=== PATIENT | male | born 1940 | race Caucasian/White ===

== ENCOUNTER → 2016-12-23 13:47 | Outpatient (CLI) | payer MEDICARE, OTHER ==
[2016-01-22 09:58] VITALS: BMI 29.5
[~2016-12-23 13:47] MED LIST: AMITRIPTYLINE H50 MG PO; ASCORBIC ACID500 MG PO; ASPIRIN 81 MG E81 MG PO; ATARAX 25 MG TA25 MG PO; ATROVENT 0.06%15 ML NS; BENICAR HCT 20-1 TA1 PO; BREO ELLIPTA 21 EACH; BYSTOLIC10 MG PO; COENZYME Q1030 MG PO; DULCOLAX5 MG PO; FISH OIL 1,0001 CA1 PO; HYZAAR 100-25 T1 TAB PO; LEVOXYL125 MCG PO; LUTEIN20 MG PO; METAMUCIL1042 GM PO; MOBIC7.5 MG PO; MULTIPLE VITAMI1 TA1 PO; NIASPAN1000 MG PO; NOVOLOG100 U/M1; NOVOLOG100 U/M1 SQ; PLAVIX75 MG PO; ZOCOR80 MG PO
== END | disposition home or self-care (01) ==
LOC: D.CT 13:47
DX: I73.9 Peripheral vascular disease, unspecified (principal)

== ENCOUNTER 2016-12-30 07:41 | Outpatient (CLI) | payer MEDICARE, OTHER ==
[~2016-12-30] VITALS: Ht 180.3 cm; Wt 91.8 kg
--- NOTE | ~2016-12-30 | HEMODYNAMI ---
PATIENT:BILL JIMNEEZ MEDICAL RECORD: [id number] : 44 LOCATION:[facility] ADMISSION DATE: 12/30/16 Generatedon:12/30/201610:49 Patient name: BILL JIMENEZ Patient #: [id number] SSN: : 1 12/03/1939 Date of study: 12/30/2016 Page: Of Hemodynamic Procedure Report Patient Data Patient Demographics Procedure consent was obtained First Name: Gender: Male Last Name: TONY : 1940 [facility] Initial: DEX Age: 76 year(s) Patient #: [id number] Race: Unknown Additional ID: [id number] Contact details Address: [address] [place] [address] [place] State: [place] City: [place] Zip code: [address] Past Medical History History of disease Date Diagnosis Comments CAD Renal failure Allergies Allergen Reaction Date Comments Reported Augmentin 01/22/2016 Admission Admission Data Admission Date: 12/30/2016 Admission Time: 7:41 Insurance Payor: Private health insurance, Medicare Height (in.): 70 BSA: 2.1 (m2) Height (cm.): 177.8 BMI: 28.98 (kg/m2) Weight (lbs.): 202 Weight (kg.): 91.63 Medications upon Admission Medications Dosage Times Administered Last Remarks per Delivery Day Date and Time Clopidogrel Yes 12/30/2016 0:00 Lab Results Lab Result Date: 12/30/2016 Lab Result Time: 0:00 Biochemistry Name Units Result Min Max BUN mg/dl 41 --(----)-* 7 18 Creatinine mg/dl 1.8 --(----)-* 0.6 1.3 CBC Name Units Result Min Max Hematocrit % 32.8 *-(----)-- 42 54 Hemoglobin g/dl 10.8 *-(----)-- 13.5 17.5 Procedure Procedure Types Cath Procedure Miscellaneous Procedures Moderate Sedation up to 30 minutes Peripheral Cath Diagnostic Procedure Cath Peripheral Efcyb-Clozzac-Lzn-Off Peripheral vascular Intervention Stent Stent-Fem/Popw/plasty Procedure Description Procedure Date Procedure Date: 12/30/2016 Procedure Start Time: 10:21 Procedure End Time: 10:45 Procedure Staff Name Function Ricardo Dillon MD Performing Physician Wilton Vasques RT Monitor Sukhi Flores RT Lead Front End Developer Norris Barnes RT Scrub Irma Carbajal RN Nurse Procedure Data Cath Procedure Fluoroscopy Diagnostic fluoroscopy Total fluoroscopy Time: 4.9 time: 4.9 min min Diagnostic fluoroscopy Total fluoroscopy dose: 171 dose: 171 mGy mGy Contrast Material Contrast Material Type Amount (ml) Isovue 300 78 Entry Location Entry Primary Successful Side Size Upsize 1 Upsize Entry Closure Kennedy ccessful Closure Location (Fr) (Fr) 2 (Fr) Remarks Device Remarks Femoral Right 5 Fr 7 Fr 7 Fr Exoseal artery Mid-Length Short Estimated blood loss: 10 ml Diagnostic catheters Device Type Used For End Catheter Placement Cordis Tempo 5Fr UF Procedure catheter Procedure Complications No complications Procedure Medications Medication Administration Route Dosage Oxygen NC 2 l/min Lidocaine 2% added to field 20 Heparin Flush Bag added to field 2 bags (1000units/500ml NS) 0.9% NaCl I.V. 100 ml/hr Versed I.V. 1 mg Fentanyl I.V. 50 mcg Versed I.V. 1 mg Fentanyl I.V. 50 mcg Heparin Bolus I.V. 5000 units Versed I.V. 1 mg Fentanyl I.V. 50 mcg Hemodynamics Rest BSA: 2.1 (m2) HGB: 10.8 (g/dl) O2 Consumption: Estimated: 229.52 (ml/min) O2 Con sumption indexed: Estimated:109.3 (ml/min/m) Heart Rate: 55 (bpm) Snapshots Pre Cath Intra NCS Post Cath Vital Signs Time Heart Resp SPO2 etCO2 IP7rpiu NIBP (mmHg) Rhythm Pain Sedation Rate (ipm) (%) (mmHg) (mmHg) Status Level (bpm) 10:13:37 59 16 95 0 0 213/89(144) NSR 0 (11) 10(A) , No pain 10:18:11 55 20 95 0 0 202/75(143) NSR 0 (11) 10(A) , No pain 10:23:51 54 13 99 0 0 201/85(151) NSR 0 (11) 9(A) , No pain 10:28:18 60 19 94 0 0 176/85(137) NSR 0 (11) 9(A) , No pain 10:32:50 64 14 95 0 0 175/72(124) NSR 0 (11) 9(A) , No pain 10:37:12 52 16 95 0 0 159/66(131) NSR 0 (11) 9(A) , No pain 10:41:38 55 16 97 0 0 160/68(140) NSR 0 (11) 10(A) , No pain 10:46:07 55 12 99 0 0 178/73(139) NSR 0 (11) 10(A) , No pain Medications Time Medication Route Dose Verified Delivered Reason Notes Effectiveness by by 10:13:30 Oxygen NC 2 Ricardo Buffie used for l/min Santana Carbajal RN procedure 10:13:42 Lidocaine 2% added 20ml Ricardo Ricardo for local to vial Santana Dillon MD anesthetic field 10:13:48 Heparin Flush added 2 Ricardo Ricardo used for Bag to bags Santana Dillon MD procedure (1000units/500ml field NS) 10:14:00 0.9% NaCl I.V. 100 Ricardo Buffie Per physician ml/hr Santana Carbajal RN 10:18:49 Versed I.V. 1 mg Ricardo Buffie for sedation Santana Carbajal RN 10:18:58 Fentanyl I.V. 50 Ricardo Buffie for sedation mcg Santana Carbajal RN 10:22:17 Versed I.V. 1 mg Ricardo Buffie for sedation Santana Carbajal RN 10:22:20 Fentanyl I.V. 50 Ricardo Buffie for sedation mcg Santana Carbajal RN 10:27:11 Heparin Bolus I.V. 5000 Ricardo Buffie for verifi ed units Santana Carbajal RN anticoagulation with dr dillon 10:36:20 Versed I.V. 1 mg Ricardo Buffie for sedation Santana Carbajal RN 10:36:23 Fentanyl I.V. 50 Ricardo Buffie for sedation mcg Santana Carbajal RN Procedure Log Time Note 9:45:47 Sukhi Flores RT(R) sent for patient. Start room use. 10:04:01 Time tracking: Regular hours 10:04:07 Plan of Care:Hemodynamics will remain stable., Cardiac rhythm will remain stable., Comfort level will be maintained., Respiratory function will remain adequate., Patient/ family verbilizes understanding of procedure., Procedure tolerated without complication., Recovers from procedure without complications.. 10:04:17 Patient received from Pre/Post Procedure Room to CCL 1 Alert and oriented. Tansferred to table in Supine position. 10:04:23 Warm blankets applied, and manuel hugger turned on for patient comfort. 10:04:24 Correct patient and procedure confirmed by team. 10:04:25 Signed procedure consent form obtained from patient. 10:04:26 ECG and BP/O2 sat monitors applied to patient. 10:11:11 Vital chart was started 10:11:12 Full Disclosure recording started 10:13:30 Oxygen 2 l/min NC was given by Irma Carbajal RN; used for procedure; 10:13:42 Lidocaine 2% 20ml vial added to field was given by Ricardo Dillon MD; for local anesthetic; 10:13:48 Heparin Flush Bag (1000units/500ml NS) 2 bags added to field was given by Ricardo Dillon MD; used for procedure; 10:14:00 0.9% NaCl 100 ml/hr I.V. was given by Irma Carbajal RN; Per physician; 10:16:32 Rhythm: sinus bradycardia 10:16:40 Baseline sample Acquired. 10:17:13 H&P Date Dictated: 12/19/2016 Within 30 days and on chart., H&P Addendum completed by physician on day of procedure. (MUST COMPLETE FOR ALL OUTPATIENTS). 10:17:17 Pre-procedure instructions explained to patient. 10:17:18 Pre-op teaching completed and patient verbalized understanding. 10:17:19 Family in waiting room. 10:17:20 Patient NPO since Midnight. 10:17:23 Is the patient allergic to Iodine/contrast media? No. 10:17:25 Is patient on blood thinner?Yes 10:17:27 ACC The patient was administered the following blood thiners within the last 24 hours: ACCPlavix 10:17:29 Patient diabetic? Yes. 10:17:31 If diabetic: On Metformin? No 10:17:33 Previous problem with sedation/anesthesia? No ? 10:17:34 Snore? Yes 10:17:35 Sleep apnea? No 10:17:38 Deviated septum? No 10:17:39 Opens mouth fully? Yes 10:17:40 Sticks out tongue? Yes 10:17:42 Airway obstruction? Yes COPD 10:17:47 Dentures? Yes IN 10:17:51 Pre procedure: right dorsailis pedis pulse 1+ Palpable, but thready & weak; easily obliterated 10:17:53 Pre procedure: left dorsailis pedis pulse 1+ Palpable, but thready & weak; easily obliterated 10:17:56 Patient pain scale 0/10 ?. 10:18:00 IV patent on arrival in left hand with 0.9% NaCl at [facility]. 10:18:02 Lab results completed and on chart. 10:18:05 Bilateral groins area was prepped with chlora-prep and draped in sterile fashion 10:18:07 Alarms reviewed by R. N. 10:18:07 Sharps counted by scrub and verified by R.N. 10:18:09 --------ALL STOP TIME OUT------ 10:18:09 Final Timeout: patient, procedure, and site verified with staff and physician. All members of the team are in agreement. 10:18:11 Bilateral groins site verified by team. 10:18:15 Physical assessment completed. ASA score P 2 - A patient with mild systemic disease as per Ricardo Dlilon MD. 10:18:18 Sedation plan: IV Moderate Sedation Versed, Fentanyl 10:18:49 Versed 1 mg I.V. was given by Irma Carbajal RN; for sedation; 10:18:58 Fentanyl 50 mcg I.V. was given by Irma Carbajal RN; for sedation; 10:20:14 Tegaderm 4 x 4 opened to sterile field. 10:20:15 Acist Manifold opened to sterile field. 10:20:15 Acist Hand Control opened to sterile field. 10:20:17 Acist Syringe opened to sterile field. 10:20:17 Bag Decanter opened to sterile field. 10:20:18 Medline Cath Pack opened to sterile field. 10:20:18 Terumo 5Fr [place] Sheath opened to sterile field. 10:20:19 [place] 260cm J .035 wire opened to sterile field. 10:21:28 Procedure started. 10:21:33 Local anesthetic to right femoral artery with Lidocaine 2% by Ricardo Dillon MD.INITIAL ACCESS ONLY 10:21:35 Zero performed for pressure channel P1 10::42 Zero performed for pressure channel P1 10::50 Zero performed for pressure channel P1 10:22:16 A 5 Fr sheath was inserted into the Right Femoral artery 10::17 Versed 1 mg I.V. was given by Irma Carbajal RN; for sedation; 10::20 Fentanyl 50 mcg I.V. was given by Irma Carbajal RN; for sedation; 10:24:10 A Hearing Health Science 5Fr UF catheter was advanced over the wire and used for Procedure. 10:24:20 Abdominal Aortagram was performed. 10:24:26 Left leg runoff performed. 10:24:27 Right leg runoff performed. 10:25:16 Catheter removed. 10:25:23 Terumo 7Fr [place] Sheath opened to sterile field. 10:26:48 Terumo 7Fr [place] Destination Sheath opened to sterile field. 10:26:58 Sheath upsized to a 7 Fr Mid-Length. 10:27:11 Heparin Bolus 5000 units I.V. was given by Irma Carbajal RN; for anticoagulation; verified with dr dillon 10:27:25 [place] ROADRUNNER FIRM 260CM glide wire opened to sterile field. 10:28:13 Terumo TORQUE DEVICE PLASTIC .038 opened to sterile field. 10:28:29 glide wire advanced around the horn 10:28:48 Destination sheath advanced around the horn. 10:29:45 glide wire removed, unnable to cross lesion. 10:30:51 Merit BasixCompak Inflation Kit opened to sterile field. 10:30:59 [place] Sci Choice PT Extra Support J 300cm .014 gu opened to sterile field. 10:31:23 pt extra support wire advanced. 10:31:24 Wire advanced across lesion. 10:34:00 Inflation number: 1 A Saber 6.0 x 8 x 150 balloon was prepped and advanced across the Mid Superficial Femoral, Left, then inflated to 11 PINEDA for 0:10 (min:sec). 10:34:10 multiple inflatons to 11 atms 10:34:25 Balloon removed over the wire. 10:36:20 Versed 1 mg I.V. was given by Irma Carbajal RN; for sedation; 10:36:23 Fentanyl 50 mcg I.V. was given by Irma Carbajal RN; for sedation; 10:36:43 Cordis SMART 7 X 20 X 120 stent was deployed across Mid Superficial Femoral, Left . 10:36:58 Stent catheter was removed intact over wire. 10:37:46 Inflation number: 2 The Saber 6.0 x 8 x 150 balloon was reinflated across the Mid Superficial Femoral, Left, to 17 PINEDA for 0:10 (min:sec). 10:38:04 Balloon removed over the wire. 10:39:02 Wire removed. 10:39:23 glide wire advanced to exchange sheath. 10:39:25 Sheath upsized to a 7 Fr Short. 10:39:34 Cordis 7Fr Exoseal opened to sterile field. 10:39:57 Sheath removed intact; hemostasis achieved with Exoseal to the Right Femoral artery. 10:40:24 Procedure ended.(Physican Out) 10:41:05 Fluoroscopy time 04.90 minutes. 10:41:10 Fluoroscopy dose: 171 mGy 10:41:10 Flurop Dose total: 171 10:41:24 Contrast amount:Isovue 300 78ml. 10:41:26 Sharps counted by scrub and verified by R.N. 10:41:29 Insertion/operative site no bleeding no hematoma. 10:41:34 Post-op/insertion site Right Femoral artery dressed using a 4 x 4 and Tegaderm. 10:41:40 Post right femoral artery:stable, soft, clean and dry 10:41:43 Post Procedure Pulses reassessed and unchanged 10:41:45 Post-procedure physical assessment completed. ASA score P 2 - A patient with mild systemic disease as per iRcardo Dillon MD. 10:41:47 Post procedure rhythm: unchanged. 10:41:50 Estimated blood loss: 10 ml 10:41:51 Post procedure instruction explained to patient.Patient verbalizes understanding. 10:42:05 Patient needs reinforcement of post procedure teaching. 10:43:18 Procedure type changed to Cath procedure, Miscellaneous Procedures, Moderate Sedation up to 30 minutes, Peripheral Cath Diagnostic Procedure, Cath Peripheral, Kvu[place]-Lpsepub-Owa-Off, Peripheral vascular Intervention, Stent, Stent-Fem/Popw/plasty 10:45:14 Procedure and supply charges have been captured, reviewed, submitted and are correct. 10:45:17 Procedure Complication : No complications 10:45:19 Vital chart was stopped 10:45:19 See physician's report for complete and final results. 10:45:21 Report given to Pre/Post Procedure Room. 10:45:24 Patient transfered to Pre/Post Procedure Room with Stretcher. 10:45:26 Procedure ended. 10:45: Full Disclosure recording stopped 10:45:33 ACC-PCI Only Patient was given prescriptions, or instructed by Ricardo Dillon MD to start/continue the following medications upon discharge: Plavix 10:46:44 Patient Height : 70 inches 10:46:51 Patient Weight : 202 lbs 10:46:53 Insurance Payor : Private health insurance, Medicare 10:48:43 Lab Result : BUN 41 mg/dl 10:48:43 Lab Result : Hematocrit 32.8 % 10:48:43 Lab Result : Hemoglobin 10.8 g/dl 10:48:43 Lab Result : Creatinine 1.8 mg/dl 10:48:50 End room use (Document Last) Intervention Summary Intervention Notes Time ActionType Lesion and Equipment Action# Pressure Duration Attributes Used 10:34:00 Inflate Mid Saber 6.0 1 11 00:10 balloon Superficial x 8 x 150 Femoral, balloon Left 10:36:43 Deploy self Mid Cordis 1 expanding Superficial SMART 7 X stent Femoral, 20 X 120 Left stent 10:37:46 Reinflate Mid Saber 6.0 2 17 00:10 balloon Superficial x 8 x 150 Femoral, balloon Left Device Usage Item Name Manufacture Quantity Catalog Number Hospital Part Current [facility] al Lot# / Charge Number Stock Stock Serial# Code Tegaderm 4 3M 1 [id number] [id number] 924689 652850 5 x 4 Acist Acist 1 39707 157851 876815 751806 5 Manifold Medical Systems Inc Acist Hand Acist 1 98999 547880 910213 307614 5 Control Medical Systems Inc Acist Acist 1 63754 542415 007732 393959 20 Syringe Medical Systems Inc Bag Microtek 1 2002S 136248 25150 118354 5 Decanter Medical Inc. Medline Cardinal 1 [id number] 326959 64092 022538 5 Cath Pack Health Terumo 5Fr Terumo 1 [id number] 370426 933329 862422 [address] [place] [address] [facility] [place] 1 670762 378899 448807 316474 30 260cm J .035 wire Cordis Cardinal 1 [id number] 581158 794691 850063 10 Tempo 5Fr Health UF catheter Terumo 7Fr Terumo 1 [id number] 310342 014463 579064 5 [place] Sheath Terumo 7Fr Terumo 1 RSR04 576203 041700 566449 5 [place] Destination Sheath [facility] 1 B37560 075456 041961 5 ROADRUNNER FIRM 260CM glide wire Terumo [place] 1 TD01 296164 918449 167627 5 TORQUE Scientific DEVICE PLASTIC .038 Merit Merit 1 MQ5201 707813 291637 380555 15 BasixCompak Medical Inflation Kit [place] 1 [id number] 957600 082018 291431 5 Choice PT Scientific Extra Support J 300cm .014 gu Saber 6.0 x Cardinal 1 [id number] 564234 638462 122051 5 8 x 150 Health balloon Cordis Cardinal 1 [id number] 221551 203351 0 SMART 7 X Health 20 X 120 stent Cordis 7Fr Cardinal 1 EX700 590800 562678 493356 5 Exoseal Health Signature Audit [place] Stage Time Signature Unsigned Intra-Procedure 12/30/2016 Wilton Vasques 10:49:07 AM RT(R) Signatures Monitor : Wilton Vasques RT Signature : Date : Time : [facility] [address] [id number]
[~2016-12-30 07:41] MED LIST changes: -BREO ELLIPTA 21 EACH; -DULCOLAX5 MG PO; -HYZAAR 100-25 T1 TAB PO; -MOBIC7.5 MG PO
[2016-12-30 08:01] VITALS: BP 158/41; Ht 180.3 cm; Wt 91.8 kg
[2016-12-30] MEDS ORDERED: BREO ELLIPTA 21 EACH (08:10)
[2016-12-30] MEDS ORDERED: HYZAAR 100-25 T1 TAB PO (08:13)
[2016-12-30] MEDS ORDERED: MOBIC7.5 MG PO (08:15)
[2016-12-30] MEDS ORDERED: DULCOLAX5 MG PO (08:19)
[2016-12-30 08:23] LABS: BASOPHILS 0.3 % (0.0-2.0); EOSINOPHILS 3.2 % (0-7); HEMATOCRIT 32.8 % (42.0-54.0); HEMOGLOBIN 10.8 g/dL (13.5-17.5); IMMATURE GRANULOCYTES 0.2 % (0-5); LYMPHOCYTES 31.6 % (15-50); MCH 30.5 pg (26.0-34.0); MCHC 32.9 g/dL (31.0-37.0); MCV 92.7 fL (80.0-100.0); MEAN PLATELET VOLUME 11.2 fL (7.4-10.4); NEUTROPHILS 54.7 % (40-80); PLATELET COUNT 234 10x3/uL (130-400); RBC 3.54 10x6/uL (4.20-6.10); RDW 13.3 % (11.5-14.5); WBC 6.2 10x3/uL (4.8-10.8)
[2016-12-30 08:32] LABS: ANION GAP 13.4 mmol/L (8-16); CALCIUM 9.2 mg/dL (8.5-10.1); CREATININE - SERUM 1.8 mg/dL (0.6-1.3); POTASSIUM - SERUM 4.4 mmol/L (3.5-5.1)
--- NOTE | 2016-12-30 11:05 | NUR ---
1105 HR 58 CHEST PAIN DENIED.BP 170/64. O2 AT 2 LITERS NASAL WITH NO DISTRESS NOTED. 7 FR EXOSEAL R/GROIN CDI NO BLEEDING NO HEMATOMA NOTED INSTRUCTED PATIENT TO KEEP HEAD FLAT ON PILLOW WITH RLE STRAIGHT
--- NOTE | 2016-12-30 11:45 | NUR ---
1145 RESTING QUIETLY WITH NO DISTRESS NOTED VSS WITH 7 FR EXOSEAL R/GROIN CDI NO BLEEDING NO HEMATOMA NOTED. FAMILY AT SIDE 1215 NO CHANGE IN ASSESSMENT R/GROIN CDI NO BLEEDING NO HEMATOMA NOTED.
--- NOTE | 2016-12-30 12:41 | NUR ---
VSS WITH CHEST PAIN DENIED NO DISTRESS OR C/O 7 FR EXOSEAL R/GROIN CDI NO BLEEDING NO HEMATOMA NOTED WILL MONITOR
--- NOTE | 2016-12-30 13:39 | NUR ---
1325 REPORT AND CARE FROM KRYSTIN FLOYD RN. PT IS ALERT, DENIES ANY C/O. DRESSING TO RIGHT GROIN IS CDI, NO BLEEDING OR HEMATOMA NOTED. PEDAL PULSES PALPABLE. AT BEDSIDE. SANDWICH AND WATER SERVED. CALL LIGHT IN REACH.
--- NOTE | 2016-12-30 15:20 | NUR ---
1425 PT HAS TOLERATED SANDWICH WITH NO C/O NAUSEA. GROIN DRESSING REMAINS CDI, PT DENIES ANY C/O. 1500 IV HAS BEEN DC'D WITH CATH INTACT. PT IS DRESED FOR DC AND HAS AMBULATED TO THE BATHROOM AND VOIDED QS. 1505 REVIEWED DC INSTRUCTIONS WITH PT AND WHO VERBALIZE UNDERSTANDING. PT ESCORTED TO PRIVATE AUTO VIA WC BY STAFF WITH DRIVING HIM HOME.
--- NOTE | 2017-01-03 08:47 | OP ---
PATIENT NAME: BILL JIMENEZ MEDICAL RECORD: [id number] :42 LOCATION:D.CAT ADMISSION DATE: SURGEON: JAM PADILLA MD DATE OF OPERATION: 12/30/2016 PROCEDURES: 1. Stent placement SFA, left. 2. FIELD SALES CONSULTANT SFA, left. 3. Aortofemoral runoff. 4. Abdominal aortography. INDICATION: Claudication and peripheral vascular disease. PROCEDURE IN DETAIL: After informed consent was obtained and after detailed explanation of risks, benefits as well as alternative therapies, the patient elected to proceed with angiogram and angioplasty. The right femoral area was prepped and draped in normal sterile fashion. Right femoral artery was cannulated via modified Seldinger technique with placement of a 7-[place] bxupme-vgj-cthb sheath. All catheters exchanged through this sheath. FINDINGS: The abdominal aortography was performed. The catheter was pulled down for aortofemoral runoff. Abdominal aortography reveals no significant abdominal aortic disease. There is a greater than 70% renal artery stenosis on the right. The left is devoid of renal artery stenosis. RIGHT LEG: A. Iliac: The common internal and external iliacs have mild irregularities, but no flow-limiting stenosis. B. Femoral system: The common and deep femoral have mild irregularities, but superficial femoral has multiple areas with 70% to 80% stenosis. C. Popliteal and infrapopliteal vessels are patent with good 3-vessel runoff to the foot, although mildly diffusely diseased. LEFT LEG: A. Iliac: The common internal and external iliacs have ____ irregularities, but no flow-limiting stenosis. B. Femoral system: The common and deep femoral are widely patent. Superficial femoral has previously placed stents. There is 90% stenosis proximal to the previously placed stents. C. Popliteal and infrapopliteal vessels are patent giving a 3-vessel runoff to the foot. FIELD SALES CONSULTANT STENT OF THE LEFT SFA. The balloon used was a 6.0 balloon which yielded a suboptimal result with severe intimal dissection. Stenting was undertaken with a 7 x 20 S.M.A.R.T stent. Result was 0% residual stenosis. OVERALL IMPRESSION: Successful percutaneous transluminal angioplasty stent of the left superficial femoral artery going from 90% initial stenosis to 0% residual stenosis. TRANSINT:[id number] Voice Confirmation ID: [id number] DOCUMENT ID: [id number] OPERATIVE REPORT [id number] TONYBILL HAMMOND, JAM JOHNSON at 0847 CC: [id number] DICTATION DATE: 12/30/16 1046 AMERICAN SIGN LANGUAGE INTERPRETER: 12/30/16 1128 DEP CLI 12/30/16 [id number] [place] [address]
== END 2016-12-30 15:05 | disposition home or self-care (01) ==
LOC: D.CATH 07:41
PROVIDERS: Internal Medicine Interventional Cardiology
DX: I70.212 Atherosclerosis of native arteries of extremities with intermittent claudication, left leg (principal)

== ENCOUNTER 2017-01-06 07:53 | Outpatient (CLI) | payer MEDICARE, OTHER ==
[~2017-01-06] VITALS: Ht 180.3 cm; Wt 91.8 kg
--- NOTE | ~2017-01-06 | HEMODYNAMI ---
PATIENT:BILL JIMENEZ MEDICAL RECORD: [id number] : 44 LOCATION:[facility] ADMISSION DATE: 01/06/17 Generatedon:01/06/201710:53 Patient name: BILL JIMENEZ Patient #: [id number] : 1940 Date of study: 01/06/2017 Page: Of Hemodynamic Procedure Report Patient Data Patient Demographics Procedure consent was obtained First Name: Gender: Male Last Name: TONY : 1940 Middle Initial: DEX Age: 76 year(s) Patient #: [id number] Race: SSN: [id number] Additional ID: [id number] Contact details Address: [address] [place] [address] [place] State: [place] City: [place] Zip code: [address] Past Medical History History of disease Date Diagnosis Comments CAD Renal failure Allergies Allergen Reaction Date Comments Reported Augmentin 01/22/2016 Admission Admission Data Admission Date: 01/06/2017 Admission Time: 7:53 Arrival Date: 01/06/2017 Arrival Time: 10:45 Admit Source: Other Insurance Payor: Medicare Height (in.): 71 BSA: 2.12 (m2) Height (cm.): 180.34 BMI: 28.17 (kg/m2) Weight (lbs.): 202 Weight (kg.): 91.63 Lab Results Lab Result Date: 01/06/2017 Lab Result Time: 0:00 Biochemistry Name Units Result Min Max BUN mg/dl 38 --(----)-* 7 18 Creatinine mg/dl 1.6 --(----)-* 0.6 1.3 CBC Name Units Result Min Max Hemoglobin g/dl 10.2 *-(----)-- 13.5 17.5 Procedure Procedure Types Cath Procedure Peripheral Cath Diagnostic Procedure Abd/Extremity Extremities Right Lower Ext Arterio Peripheral vascular Intervention Stent Stent-Fem/Popw/plasty Procedure Description Procedure Date Procedure Date: 01/06/2017 Procedure Start Time: 10:31 Procedure End Time: 10:46 Procedure Staff Name Function Ricardo Dillon MD Performing Physician Mariel Hodgson RT Scrub Irma Carbajal RN Nurse Ivis Mata RT Monitor Procedure Data Cath Procedure Fluoroscopy Diagnostic fluoroscopy Total fluoroscopy Time: 4.4 time: 4.4 min min Diagnostic fluoroscopy Total fluoroscopy dose: 78 dose: 78 mGy mGy Contrast Material Contrast Material Type Amount (ml) Isovue 370 42 Entry Location Entry Primary Successful Side Size Upsize Upsize Entry Closure Succes sful Closure Location (Fr) 1 (Fr) 2 (Fr) Remarks Device Remarks Femoral Left 7 Fr 7 Fr Exoseal artery Long Short Estimated blood loss: 5 ml Diagnostic catheters Device Type Used For End Catheter Placement Diagnostic 5Fr IMT Multi-vessel Catheter Angiography Procedure Complications No complications Procedure Medications Medication Administration Route Dosage Oxygen NC 2 l/min Lidocaine 2% added to field 20 Heparin Flush Bag added to field 2 bags (1000units/500ml NS) 0.9% NaCl I.V. 100 ml/hr Versed I.V. 1 mg Fentanyl I.V. 50 mcg Versed I.V. 1 mg Fentanyl I.V. 50 mcg Heparin Bolus I.V. 4000 units Fentanyl I.V. 100 mcg Hemodynamics Rest BSA: 2.12 (m2) HGB: 10.2 (g/dl) O2 Consumption: Estimated: 228.85 (ml/min) O2 Co nsumption indexed: Estimated:107.95 (ml/min/m) Heart Rate: 51 (bpm) Snapshots Pre Cath Intra NCS Post Cath Vital Signs Time Heart Resp SPO2 NIBP (mmHg) Rhythm Pain Sedation Rate (ipm) (%) Status Level (bpm) 9:41:49 48 17 98 221/80(177) NSR 0 (11) 10(A) , No pain 9:47:35 51 19 98 223/81(173) NSR 0 (11) 10(A) , No pain 9:52:20 50 17 99 215/82(175) NSR 0 (11) 10(A) , No pain 9:56:59 51 17 98 219/88(171) NSR 0 (11) 10(A) , No pain 10:02:43 46 16 97 201/68(152) NSR 0 (11) 10(A) , No pain 10:08:09 51 16 98 195/80(155) NSR 0 (11) 10(A) , No pain 10:13:46 47 17 97 205/73(144) NSR 0 (11) 10(A) , No pain 10:18:27 58 16 96 189/86(143) NSR 0 (11) 10(A) , No pain 10:23:04 57 15 95 189/78(140) NSR 0 (11) 10(A) , No pain 10:28:33 52 15 98 195/70(144) NSR 0 (11) 9(A) , No pain 10:34:13 51 16 97 203/58(144) NSR 0 (11) 9(A) , No pain 10:38:40 53 16 94 175/87(97) NSR 0 (11) 9(A) , No pain 10:43:39 58 15 99 Measuring NSR 0 (11) 9(A) , No pain 10:44:18 57 16 98 199/76(145) NSR 0 (11) 10(A) , No pain Medications Time Medication Route Dose Verified Delivered Reason Notes Effectiveness by by 9:51:02 Oxygen NC 2 Ricardo Buffie used for l/min Santana Carbajal RN procedure 9:51:08 Lidocaine 2% added 20ml Ricardo Buffie used for to vial Santana Carbajal RN procedure field 9:51:14 Heparin Flush added 2 Ricardo Buffie used for Bag to bags Santana Carbajal RN procedure (1000units/500ml field NS) 9:51:21 0.9% NaCl I.V. 100 Ricardo Buffie Per physician ml/hr Santana Carbajal RN 10:26:11 Versed I.V. 1 mg Ricardo Buffie for sedation Santana Carbajal RN 10:26:17 Fentanyl I.V. 50 Ricardo Buffie for sedation mcg Santana Carbajal RN 10:31:33 Versed I.V. 1 mg Ricardo Buffie for sedation Santana Carbajal RN 10:31:36 Fentanyl I.V. 50 Ricardo Buffie for sedation mcg Santana Carbajal RN 10:32:27 Heparin Bolus I.V. 4000 Ricardo Buffie for verifi ed units Santana Carbajal RN anticoagulation with dr dillon 10:35:30 Fentanyl I.V. 100 Ricardo Buffie for sedation mcg Santana Carbajal neurobiologist Log Time Note 9:00:02 Mariel Hodgson RT(R) sent for patient. Start room use. 9:24:01 Informed consent obtained and on chart 9:24:06 Diagnostic Cath Status : Elective 9:25:08 Admit Source: Other 9:25:09 Arrival Date: 01/06/2017 10:45:00 AM 9:25:19 Insurance Payor : Medicare 9:28:12 Lab Result : Hemoglobin 10.2 g/dl 9::12 Lab Result : BUN 38 mg/dl 9::12 Lab Result : Creatinine 1.6 mg/dl 9:30:17 Time tracking: Regular hours 9:30:21 Plan of Care:Hemodynamics will remain stable., Cardiac rhythm will remain stable., Comfort level will be maintained., Respiratory function will remain adequate., Patient/ family verbilizes understanding of procedure., Procedure tolerated without complication., Recovers from procedure without complications.. 9:30:29 Patient received from Pre/Post Procedure Room to CCL 2 Alert and oriented. Tansferred to table in Supine position. 9:30:30 Warm blankets applied, and manuel hugger turned on for patient comfort. 9:30:31 Correct patient and procedure confirmed by team. 9:30:31 ECG and BP/O2 sat monitors applied to patient. 9:36:19 H&P Date Dictated: 12/19/2016 Within 30 days and on chart., H&P Addendum completed by physician on day of procedure. (MUST COMPLETE FOR ALL OUTPATIENTS). 9:36:23 Pre-procedure instructions explained to patient. 9:36:25 Family in waiting room. 9:36:27 Patient NPO since Midnight. 9:36:30 Is the patient allergic to Iodine/contrast media? No. 9:36:33 Was the patient premedicated? Yes 9:36:35 Is patient on blood thinner?Yes 9:36:38 ACC The patient was administered the following blood thiners within the last 24 hours: ACCPlavix 9:36:42 Patient diabetic? Yes. 9:36:44 If diabetic: On Metformin? No 9:36:49 Snore? Yes 9:36:50 Sleep apnea? No 9:37:07 Dentures? Yes tight 9:39:16 Vital chart was started 9:39:17 Baseline sample Acquired. 9:39:21 Rhythm: sinus rhythm 9:39:27 Full Disclosure recording started 9:39:34 Deviated septum? No 9:39:35 Opens mouth fully? Yes 9:39:35 Sticks out tongue? Yes 9:39:37 Airway obstruction? No ? 9:39:49 Pre procedure: right dorsailis pedis pulse 1+ Palpable, but thready & weak; easily obliterated 9:39:52 Patient pain scale 0/10 ?. 9:40:03 IV patent on arrival in left forearm with 0.9% NaCl at [facility]. 9:40:09 Lab results completed and on chart. 9:40:15 Left groin area was prepped with chlora-prep and draped in sterile fashion 9:40:16 Alarms reviewed by R. N. 9:40:16 Sharps counted by scrub and verified by R.N. 9:45:55 Patient Height : 180.34 inches 9:45:59 Patient Weight : 91.63 lbs 9:51:02 Oxygen 2 l/min NC was given by Irma Carbajal RN; used for procedure; 9:51:08 Lidocaine 2% 20ml vial added to field was given by Irma Carbajal RN; used for procedure; 9:51:14 Heparin Flush Bag (1000units/500ml NS) 2 bags added to field was given by Iram Carbajal RN; used for procedure; 9:51:21 0.9% NaCl 100 ml/hr I.V. was given by Irma Carbajal RN; Per physician; 10:21:11 Physician arrived 10:21:12 --------ALL STOP TIME OUT------ 10:21:12 Final Timeout: patient, procedure, and site verified with staff and physician. All members of the team are in agreement. 10:21:15 Left groin site verified by team. 10:21:17 Physical assessment completed. ASA score P 2 - A patient with mild systemic disease as per Ricardo Dillon MD. 10:21:22 Sedation plan: IV Moderate Sedation Versed, Fentanyl 10:26:11 Versed 1 mg I.V. was given by Irma Carbajal RN; for sedation; 10::17 Fentanyl 50 mcg I.V. was given by Buffie Carbajal RN; for sedation; 10:30:10 Use device set Femoral PCI 10:30:11 Acist Syringe opened to sterile field. 10:30:12 Acist Hand Control opened to sterile field. 10:30:13 Bag Decanter opened to sterile field. 10:30:13 Medline Cath Pack opened to sterile field. 10:30:17 [place] 260cm J .035 wire opened to sterile field. 10:30:18 Merit BasixCompak Inflation Kit opened to sterile field. 10:30:22 Acist Manifold opened to sterile field. 10:30:22 Tegaderm 4 x 4 opened to sterile field. 10:30:46 Terumo 7Fr [place] Sheath opened to sterile field. 10:30:47 Terumo 7Fr [place] Destination Sheath opened to sterile field. 10:31:30 Procedure started. 10:31:33 Versed 1 mg I.V. was given by Irma Carbajal RN; for sedation; 10:31:34 Local anesthetic to left femerol artery with Lidocaine 2% by Ricardo Dillon MD.INITIAL ACCESS ONLY 10:31:36 Fentanyl 50 mcg I.V. was given by Irma Carbajal RN; for sedation; 10:31:49 A 7 Fr Long sheath was inserted into the Left Femoral artery 10:32:09 Terumo ANGLED SS 260CM glide wire opened to sterile field. 10:32:17 Terumo TORQUE DEVICE PLASTIC .038 opened to sterile field. 10:32:27 Heparin Bolus 4000 units I.V. was given by Irma Carbajal RN; for anticoagulation; verified with dr dillon 10:32:31 A Diagnostic 5Fr IMT Catheter was advanced over the wire and used for Multi-vessel Angiography. 10:32:45 glide wire advanced. 10:33:39 Right leg runoff performed. 10:34:07 Catheter removed. 10:35:30 Fentanyl 100 mcg I.V. was given by Irma Carbajal RN; for sedation; 10:36:02 Inflation number: 1 A Cordis Powerflex Pro 6.0 X 60 X 135 balloon was prepped and advanced across the Mid Superficial Femoral, Right, then inflated to 11 PINEDA for 0:10 (min:sec). 10:36:19 Inflation number: 2 The Cordis Powerflex Pro 6.0 X 60 X 135 balloon was reinflated across the Mid Superficial Femoral, Right, to 11 PINEDA for 0:10 (min:sec). 10:37:17 Balloon removed over the wire. 10:39:47 Cordis SMART 6 X 80 X 120 stent was deployed across Mid Superficial Femoral, Right . 10:39:55 Stent catheter was removed intact over wire. 10:41:03 Inflation number: 3 The Cordis Powerflex Pro 6.0 X 60 X 135 balloon was reinflated across the Mid Superficial Femoral, Right, to 13 PINEDA for 0:10 (min:sec). 10:41:58 Balloon removed over the wire. 10:42:14 Sheath upsized to a 7 Fr Short. 10:42:31 Cordis 7Fr Exoseal opened to sterile field. 10:43:19 Sheath removed intact; hemostasis achieved with Exoseal to the Left Femoral artery. 10:43:23 Procedure ended.(Physican Out) 10:44:33 Fluoroscopy time 04.40 minutes. 10:44:38 Flurop Dose total: 78 10:44:38 Fluoroscopy dose: 78 mGy 10:44:44 Contrast amount:Isovue 370 42ml. 10:44:46 Sharps counted by scrub and verified by R.N. 10:44:53 Insertion/operative site no bleeding no hematoma. 10:44:58 Post-op/insertion site Left Femoral artery dressed using a 4 x 4 and Tegaderm. 10:45:01 Post left femerol artery:stable 10:45:04 Post Procedure Pulses reassessed and unchanged 10:45:09 Post procedure rhythm: unchanged. 10:45:12 Estimated blood loss: 5 ml 10:45:14 Post procedure instruction explained to patient.Patient verbalizes understanding. 10:45:14 Patient needs reinforcement of post procedure teaching. 10:46:38 Procedure type changed to Cath procedure, Peripheral Cath Diagnostic Procedure, Abd/Extremity, Extremities, Right Lower Ext Arterio, Peripheral vascular Intervention, Stent, Stent-Fem/Popw/plasty 10:46:40 Procedure and supply charges have been captured, reviewed, submitted and are correct. 10:46:44 Procedure Complication : No complications 10:46:46 Vital chart was stopped 10:46:46 See physician's report for complete and final results. 10:46:48 Report given to Pre/Post Procedure Room. 10:46:53 Patient transfered to Pre/Post Procedure Room with Stretcher. 10:46:55 Procedure ended. 10:46:55 Full Disclosure recording stopped 10:47:17 End room use (Document Last) Intervention Summary Intervention Notes Time ActionType Lesion and Equipment Action# Pressure Duration Attributes Used 10:36:02 Inflate Mid Cordis 1 11 00:10 balloon Superficial Powerflex Femoral, Pro 6.0 X Right 60 X 135 balloon 10:36:19 Reinflate Mid Cordis 2 11 00:10 balloon Superficial Powerflex Femoral, Pro 6.0 X Right 60 X 135 balloon 10:39:47 Deploy self Mid Cordis 1 expanding Superficial SMART 6 X stent Femoral, 80 X 120 Right stent 10:41:03 Reinflate Mid Cordis 3 13 00:10 balloon Superficial Powerflex Femoral, Pro 6.0 X Right 60 X 135 balloon Device Usage Item Name Manufacture Quantity Catalog Number Hospital Part Current Minim al Lot# / Charge Number Stock Stock Serial# Code Acist Acist 1 06331 595222 007927 [id number] 20 Syringe Medical Systems Inc Acist Hand Acist 1 80326 948520 231825 673980 5 Control Medical Systems Inc Bag Microtek 1 2002S 222589 81320 477105 5 DecBodBot Medical Inc. Medline Cardinal 1 [id number] 322638 36194 006682 [address] [facility] [place] 1 164402 184177 467843 140553 30 260cm J .035 wire Merit Merit 1 [id number] 314869 078367 121266 15 [employer]Intelle[employer] Medical Inflation Kit Acist Acist 1 11809 893713 865529 888112 5 Manifold Medical Systems Inc Tegaderm 4 3M 1 1626W 092522 858139 355824 5 x 4 Terumo 7Fr Terumo 1 [id number] 185578 438590 374387 5 Almont Sheath Terumo 7Fr Terumo 1 RSR04 792363 804129 576256 5 Almont Destination Sheath Terumo Terumo 1 [id number] 674047 337462 168651 5 ANGLED SS 260CM glide wire Terumo [place] 1 TD01 981182 938894 696764 5 TORQUE Scientific DEVICE PLASTIC .038 Cordis Cardinal 1 [id number] 187586 662528 5 Powerflex Health Pro 6.0 X 60 X 135 balloon Cordis Cardinal 1 [id number] 053307 750879 694731 0 [id number] SMART 6 X Health 80 X 120 stent Cordis 7Fr Cardinal 1 EX700 953756 143410 396972 5 [facility] Health Diagnostic [place] [address] [id number] 001694 230045 22129 5 5Fr [facility] Scientific Catheter Signature Audit [place] Stage Time Signature Unsigned Intra-Procedure 01/06/2017 Ivis Mata 10:52:56 AM RT(R) Signatures Monitor : Ivis Mata RT Signature : Date : Time : [place] [id number] [facility] [place] [address]
[~2017-01-06 07:53] MED LIST changes: +BREO ELLIPTA 21 EACH; +DULCOLAX5 MG PO; +HYZAAR 100-25 T1 TAB PO; +MOBIC7.5 MG PO
[2017-01-06 08:10] VITALS: Ht 180.3 cm; Wt 91.8 kg
[2017-01-06 08:49] LABS: BASOPHILS 0.5 % (0.0-2.0); EOSINOPHILS 2.9 % (0-7); HEMATOCRIT 30.6 % (42.0-54.0); HEMOGLOBIN 10.2 g/dL (13.5-17.5); IMMATURE GRANULOCYTES 0.2 % (0-5); LYMPHOCYTES 26.5 % (15-50); MCHC 33.3 g/dL (31.0-37.0); MONOCYTES 9.7 % (2-11); NEUTROPHILS 60.2 % (40-80); PLATELET COUNT 211 10x3/uL (130-400); RBC 3.29 10x6/uL (4.20-6.10); RDW 13.4 % (11.5-14.5); WBC 6.1 10x3/uL (4.8-10.8)
[2017-01-06 09:01] LABS: ANION GAP 11.2 mmol/L (8-16); CALCIUM 8.7 mg/dL (8.5-10.1); CARBON DIOXIDE 26.6 mmol/L (21.0-32.0); CREATININE - SERUM 1.6 mg/dL (0.6-1.3); POTASSIUM - SERUM 4.8 mmol/L (3.5-5.1)
--- NOTE | 2017-01-06 11:26 | NUR ---
1105 RECEIVED PT FROM AEROGRAPHER, PT IS DROWSY, AWAKENS TO VERBAL STIMULI. PT DENIES ANY C/O AT THIS TIME. FEMSTOP IS CDI TO LEFT GROIN WITH NO BLEEDING OR HEMATOMA NOTED. PEDAL PULSES PALPABLE, CAP REFILL IS BRISK, FEET WARM TO TOUCH. INSTRUCTED PT TO KEEP HEAD TO PILLOW AND BILAT LEGS STRAIGHT. PT VERBALIZES UNDERSTANDING OF INSTRUCTIONS, CALL LIGHT IS IN REACH, PT DENIES NEEDS AT THIS TIME.
--- NOTE | 2017-01-06 11:33 | NUR ---
1100 PT DENIES ANY C/O. DRESSINGS TO BILAT GROINS ARE CDI, NO BLEEDING OR HEMATOMA NOTED. PEDAL PULSES PALPABLE. FRIENDS AT BEDSIDE CALL LIGHT IN REACH.
--- NOTE | 2017-01-06 12:09 | NUR ---
1150 FEMSTOP INTACT TO LEFT GROIN WITH NO BLEEDING OR HEMATOMA NOTED. PEDAL PULSES PALPABLE. CAP REFILL IS BRISK. PT RICK LIQUIDS WITH NO C/O NAUSEA. CALL LIGHT IN REACH. PT DENIES ANY C/O AT THIS TIME.
--- NOTE | 2017-01-06 13:19 | NUR ---
[address] PADILLA TO REPORT BP 202/63 [address] PADILLA, REPORTED ELEVATED BP READINGS, NEW ORDER RECEIVED.
--- NOTE | 2017-01-06 16:20 | NUR ---
1400 PRESSURE HAS BEEN RELEASED FROM FEMSTOP WITH NO BLEEDING OR HEMATOMA NOTED. WILL CONTINUE TO MONITOR SITE. 1500 IV HAS BEEN DC'D WITH CATH INTACT, PT DRESSING FOR DC. 1520 PT HAS VOIDED QS. REVIEWED DC INSTRUCTIONS WITH PT AND WHO VERBALIZE UNDERSTANDING. DRESSING TO GROIN REMAINS CDI. PT DENIES ANY C/O. PT ESCORTED TO PRIVATE AUTO VIA WC WITH DRIVING HIM HOME.
--- NOTE | 2017-01-07 10:33 | HP ---
PATIENT: BILL JIMENEZ MEDICAL RECORD: [id number] ACCOUNT: [id number] LOCATION:[facility] : 44 ADMISSION DATE: 01/06/17 HISTORY AND PHYSICAL EXAMINATION DATE OF SERVICE: 01/06/2017 ADMITTING DIAGNOSES: 1. Right leg claudication. 2. Peripheral vascular disease. 3. Coronary artery disease. 4. Hypertension. 5. Hyperlipidemia. HISTORY OF PRESENT ILLNESS: Mr. Jimenez underwent aortofemoral runoff last week revealing bilateral SFA stenosis. He underwent successful LEAD PL SQL DEVELOPER stent of the left SFA continues to have right leg claudication, now brought back for LEAD PL SQL DEVELOPER stent of the right leg in a staged fashion. PHYSICAL EXAMINATION: GENERAL APPEARANCE: Well-nourished, well-developed, appears stated age. Level of distress, comfortable. PSYCHIATRIC: Mental status, alert, normal affect. Orientation, oriented to time, place and person. EYES: Lids and conjunctiva, noninjected. No discharge, no pallor. ENT: Lips, teeth, gums, normal dentition. Oropharynx, no cyanosis, no pallor. NECK: Carotid arteries, bilateral normal upstroke, no bruits, no thrills. JUGULAR VEINS: No jugular venous pressure or distention. CERVICAL LYMPH NODES: Nontender, nonenlarged. THYROID: Not enlarged. Nontender. No nodules. LUNGS: Respiratory effort, unlabored. CHEST: Normal curvature. No thoracic deformity. No chest wall tenderness. Percussion, resonant. Auscultation, clear. No wheezes, no rales, no rhonchi. CARDIOVASCULAR: Precordial exam, nondisplaced. No heaves or pericardial thrills. Rate and rhythm, regular. Heart sounds, normal S1, normal S2. No S3, no gallop, no rub. Systolic murmur, not heard. Diastolic murmur, not heard. EXTREMITIES: No cyanosis, no edema. Peripheral pulses, full and equal in all extremities, except as noted. No bruits appreciated. ABDOMEN: Soft, nondistended. Normal aorta. No bruit. Nontender. No masses. Liver, nontender, no hepatomegaly. Spleen, nontender, no splenomegaly. MUSCULOSKELETAL: No joint tenderness. No joint swelling. No erythema. NEUROLOGICAL: Normal gait, normal strength, normal tone. SKIN: Warm and dry. REVIEW OF SYSTEMS: The patient reports easy bruising but reports no swollen glands. The patient reports no fever, no night sweats, no significant weight gain, no significant weight loss. No significant exercise tolerance. The patient reports no dry eyes, no irritation, no vision change. Patient reports no difficulty hearing and no ear pain. Patient reports no frequent nose bleeds or nose and sinus problems. Patient reports on arm pain on exertion. No shortness of breath while lying down. No history of heart murmur. Patient reports no cough, no wheezing or coughing up blood. Patient reports no abdominal pain, no vomiting. Normal appetite. No diarrhea and not vomiting blood. No nausea and no constipation. Patient reports no incontinence. No difficulty urinating. No hematuria. No increased frequency. Patient reports HISTORY AND PHYSICAL [id number] TONYBILL no muscle aches. No weakness, no arthralgias, no back pain. No swelling of the extremities. Patient reports no abnormal mole, no jaundice, no rashes. Reports no loss of consciousness. No weakness and no numbness. No seizures, dizziness, or headaches. The patient reports no depression, no sleep disturbance, feeling safe in a relationship and no alcohol abuse. Patient reports on fatigue. Reports no runny nose or sinus pressure. No itching, no hives, and no frequent sneezing. OVERALL IMPRESSION: Right leg claudication with peripheral vascular disease of the right leg that is amenable to transcatheter revascularization. We will proceed with transcatheter revascularization of the right SFA. TRANSINT:[id number] Voice Confirmation ID: [id number] DOCUMENT ID: [id number] JAM PADILLA MD at 1033 CC: [id number] DICTATION DATE: 01/06/17 1136 CIVIL RIGHTS REPRESENTATIVE: 01/06/17 1315 DEP CLI 01/06/17 [place] [address]
--- NOTE | 2017-01-07 16:47 | OP ---
PATIENT NAME: BILL JIMENEZ MEDICAL RECORD: [id number] :44 LOCATION:D.CAT ADMISSION DATE: SURGEON: JAM PADILLA MD DATE OF OPERATION: 01/06/2017 PROCEDURES: 1. Stent placement SFA, right. 2. CASH SPECIALIST SFA, right. 3. Unilateral extremity angiography. INDICATION: Claudication and peripheral vascular disease. PROCEDURE IN DETAIL: After informed consent was obtained and after a detailed explanation of the risks, benefits as well as alternative therapies, the patient elected to proceed with angiogram and angioplasty. The left femoral area was prepped and draped in normal sterile fashion. Left femoral artery was cannulated via modified Seldinger technique with a 7-Danish uxjjcz-ayn-getp sheath. All catheters exchanged through this sheath. FINDINGS: The SFA on the right has multiple areas of 80% to 90% stenosis in the mid vessel. These were addressed with a 6.0 balloon, which yielded suboptimal results with severe intimal dissection. Stenting was undertaken with a 6 x 80 SMART stent. Result was 0% residual stenosis. OVERALL IMPRESSION: Successful percutaneous transluminal angioplasty stent of the right superficial femoral artery going from multiple areas of 80+ percent stenosis to 0% residual stenosis. TRANSINT:[id number] Voice Confirmation ID: [id number] DOCUMENT ID: [id number] JAM PADILLA MD at 1647 CC: [id number] DICTATION DATE: 01/06/17 1047 GROUNDS MAINTENANCE SUPERVISOR: 01/06/17 1142 DEP CLI 01/06/17 [place] [id number]
== END 2017-01-06 15:20 | disposition home or self-care (01) ==
LOC: D.CATH 07:53
PROVIDERS: Internal Medicine Interventional Cardiology
DX: I70.211 Atherosclerosis of native arteries of extremities with intermittent claudication, right leg (principal)

== ENCOUNTER 2017-11-04 09:42 | Inpatient (IN) | payer MEDICARE, OTHER ==
[~2017-11-04] VITALS: Ht 180.3 cm; Wt 88.5 kg
--- NOTE | ~2017-11-04 | HEMODYNAMI ---
PATIENT:BILL JIMENEZ MEDICAL RECORD: [id number] : 44 LOCATION[facility] D.[id number] ADMISSION DATE: 11/04/17 Generatedon:11/05/201712:13 Patient name: BILL JIMENEZ Patient #: [id number] : 1940 Date of study: 11/05/2017 Page: Of Hemodynamic Procedure Report Patient Data Patient Demographics Procedure consent was obtained First Name: Gender: Male Last Name: TONY : 1940 [facility] Initial: DEX Age: 77 year(s) Patient #: [id number] Race: SSN: [id number] Additional ID: [id number] Contact details Address: [address] [place] [address] [place] State: [place] City: [place] Zip code: [address] Past Medical History History of disease Date Diagnosis Comments CAD Renal failure Allergies Allergen Reaction Date Comments Reported Augmentin 01/22/2016 Admission Admission Data Admission Date: 11/04/2017 Admission Time: 11:52 Arrival Date: 11/04/2017 Arrival Time: 11:52 Admit Source: Other Insurance Payor: Medicare Room #: D.2121 Height (in.): 70.87 BSA: 2.15 (m2) Height (cm.): 180 BMI: 29.32 (kg/m2) Weight (lbs.): 209.44 Weight (kg.): 95 Lab Results Lab Result Date: 11/05/2017 Lab Result Time: 0:00 Biochemistry Name Units Result Min Max BUN mg/dl 41 --(----)-* 7 18 Creatinine mg/dl 2.1 --(----)-* 0.6 1.3 CBC Name Units Result Min Max Hemoglobin g/dl 10.7 *-(----)-- 13.5 17.5 Procedure Procedure Types Cath Procedure Diagnostic Procedure LHC LHC w/Coronaries Miscellaneous Procedures Moderate Sedation up to 30 minutes Procedure Description Procedure Date Procedure Date: 11/05/2017 Procedure Start Time: 12:01 Procedure End Time: 12:09 Procedure Staff Name Function Ricardo Dillon MD Performing Physician Ivis Mata RT Monitor Mariel Hodgson RT Scrub Victoria Hatfield RN Nurse Procedure Data Cath Procedure Fluoroscopy Diagnostic fluoroscopy Total fluoroscopy Time: 1.8 time: 1.8 min min Diagnostic fluoroscopy Total fluoroscopy dose: 445 dose: 445 mGy mGy Contrast Material Contrast Material Type Amount (ml) Isovue 300 63 Entry Location Entry Primary Successful Side Size Upsize Upsize Entry Closure Succes sful Closure Location (Fr) 1 (Fr) 2 (Fr) Remarks Device Remarks Femoral Right 5 Fr Exoseal artery Estimated blood loss: 5 ml Diagnostic catheters Device Type Used For End Catheter Placement MULTIPACK Pigtail 5 Fr LV Angiography catheter MULTIPACK JL 4.0 5Fr Left Coronary catheter Angiography MULTIPACK 3DRC 5Fr Multi-vessel catheter Angiography DIAGNOSTIC AR 2 MOD 5 Fr Multi-vessel catheter ([id number]) Angiography Procedure Complications No complications Procedure Medications Medication Administration Route Dosage 0.9% NaCl I.V. 100 ml/hr Oxygen NC 2 l/min Lidocaine 2% added to field 20 Heparin Flush Bag added to field 2 bags (1000units/500ml NS) Fentanyl I.V. 50 mcg Versed I.V. 1 mg Fentanyl I.V. 50 mcg Versed I.V. 1 mg Versed I.V. 1 mg Hemodynamics Rest BSA: 2.15 (m2) O2 Consumption: Estimated: 258.6 (ml/min) O2 Consumption indexed: Estimated:120.28 (ml/min/m) Heart Rate: 84 (bpm) Pressure Samples Time Site Value (mmHg) Purpose Heart Use Rate(bpm) 12:03 LV 183/10,17 Snapshot 71 Snapshots Pre Cath Intra NCS Post Cath Vital Signs Time Heart Resp SPO2 NIBP (mmHg) Rhythm Pain Sedation Rate (ipm) (%) Status Level (bpm) 11:44:10 87 19 95 181/81(135) NSR 0 (11) 10(A) , No pain 11:57:12 84 15 96 183/68(120) NSR 0 (11) 10(A) , No pain 12:01:35 81 18 96 157/71(120) NSR 0 (11) 9(A) , No pain 12:05:59 82 16 96 160/70(114) NSR 0 (11) 10(A) , No pain 12:10:23 83 23 95 165/75(121) NSR 0 (11) 10(A) , No pain Medications Time Medication Route Dose Verified Delivered Reason Notes Effe ctiveness by by 11:44:43 0.9% NaCl I.V. 100 Ricardo Victoria used for ml/hr Santana Hatfield RN procedure 11:44:53 Oxygen NC 2 Ricardo Victoria Per l/min Santana Hatfield RN physician 11:45:01 Lidocaine 2% added 20ml Ricardo Ricardo for local to vial Santana Dillon MD anesthetic field 11:45:07 Heparin Flush added 2 Ricardo Ricardo used for Bag to bags Santana Dillon MD procedure (1000units/500ml field NS) 12:00:40 Fentanyl I.V. 50 Ricardo Victoria for [facility] Santana Hatfield RN sedation 12:00:48 Versed I.V. 1 mg Ricardo Zelayafany for Santana Hatfield RN sedation 12:02:05 Fentanyl I.V. 50 Ricardo Victoria for gabe Hatfield RN sedation 12:02:11 Versed I.V. 1 mg Ricardo Victoria for Santana Hatfield RN sedation 12:03:56 Versed I.V. 1 mg Ricadro Victoria for Santana Hatfield RN sedation Procedure Log Time Note 11:25:28 Informed consent obtained and on chart 11:25:57 Mariel Hodgson RT(R) sent for patient. Start room use. 11:25:58 Time tracking: Regular hours 11:26:02 Plan of Care:Hemodynamics will remain stable., Cardiac rhythm will remain stable., Comfort level will be maintained., Respiratory function will remain adequate., Patient/ family verbilizes understanding of procedure., Procedure tolerated without complication., Recovers from procedure without complications.. 11:34:53 Patient received from Med II to CCL 2 Alert and oriented. Tansferred to table in Supine position. 11:34:55 Warm blankets applied, and manuel hugger turned on for patient comfort. 11:34:56 Correct patient and procedure confirmed by team. 11:35:07 H&P Date Dictated: 11/04/2017 Within 30 days and on chart.. 11:35:10 Pre-procedure instructions explained to patient. 11:35:12 Family in patients room. 11:35:14 Patient NPO since Midnight. 11:35:21 Is the patient allergic to Iodine/contrast media? No. 11:35:23 Was the patient premedicated? Yes 11:35:24 Is patient on blood thinner?Yes 11:35:37 ACC The patient was administered the following blood thiners within the last 24 hours: ACCPlavix, ACCLovenox 11:35:39 Patient diabetic? Yes. 11:35:40 If diabetic: On Metformin? No 11:35:59 Snore? Yes 11:36:01 Sleep apnea? No 11:36:10 Airway obstruction? Yes COPD 11:36:41 Patient pain scale 10/10 ?. 11:37:11 Lab results completed and on chart. 11:37:15 Right groin area was prepped with chlora-prep and draped in sterile fashion 11:37:18 Sharps counted by scrub and verified by R.N. 11:37:22 Physician paged 11:37:23 Physician arrived 11:44:43 0.9% NaCl 100 ml/hr I.V. was administered by Victoria Hatfield RN; used for procedure; 11:44:53 Oxygen 2 l/min NC was administered by Victoria Hatfield RN; Per physician; 11:45:01 Lidocaine 2% 20ml vial added to field was administered by Ricardo Dillon MD; for local anesthetic; 11:45:07 Heparin Flush Bag (1000units/500ml NS) 2 bags added to field was administered by Ricardo Dillon MD; used for procedure; 11:47:36 Lab Result : Hemoglobin 10.7 g/dl 11:47:36 Lab Result : Creatinine 2.1 mg/dl 11:47:36 Lab Result : BUN 41 mg/dl 11:47:45 Admit Source: Other 11:47:56 Arrival Date: 11/04/2017 11:52:00 AM 11:48:04 Insurance Payor : Medicare 11:49:10 Patient Weight : 209.44 lbs 11:49:24 Patient Height : 70.87 inches 11:54:46 Zero performed for pressure channel P1 11:55:03 Baseline sample Acquired. 11:55:57 Vital chart was started 11:59:40 --------ALL STOP TIME OUT------ 11:59:40 Final Timeout: patient, procedure, and site verified with staff and physician. All members of the team are in agreement. 11:59:44 Right groin site verified by team. 11:59:46 Physical assessment completed. ASA score P 2 - A patient with mild systemic disease as per Ricardo Dillon MD. 11:59:57 Sedation plan: IV Moderate Sedation Medication:Versed, Fentanyl 12:00:05 Procedure started. 12:00:05 Full Disclosure recording started 12:00:40 Fentanyl 50 mcg I.V. was administered by Victoria Hatfield RN; for sedation; 12:00:48 Versed 1 mg I.V. was administered by Victoria Hatfield RN; for sedation; 12:01:00 Local anesthetic to right femoral artery with Lidocaine 2% by Ricardo Dillon MD.INITIAL ACCESS ONLY 12:01:40 A 5 Fr sheath was inserted into the Right Femoral artery 12:01:48 Use device set Femoral Dx 12:01:49 ACIST Syringe (62367) opened to sterile field. 12:01:49 Bag Decanter (2002S) opened to sterile field. 12:01:49 Medline Cath Pack ([id number]) opened to sterile field. 12:01:50 SHEATH 5FR [place] (MQK300) opened to sterile field. 12:01:50 DIAGNOSTIC WIRE .035 260cm J wire (977548) opened to sterile field. 12:01:51 ACIST Hand Control (78171) opened to sterile field. 12:01:52 ACIST Manifold (52027) opened to sterile field. 12:01:53 DIAGNOSTIC Multipack 5Fr catheter set (BW3966) opened to sterile field. 12:01:54 Tegaderm 4 x 4 (1626W) opened to sterile field. 12:02:05 Fentanyl 50 mcg I.V. was administered by Victoria Hatfield RN; for sedation; 12:02:10 A MULTIPACK Pigtail 5 Fr catheter was advanced over the wire and used for LV Angiography. 12:02:11 Versed 1 mg I.V. was administered by Victoria Hatfield RN; for sedation; 12:03:14 LV hemodynamics recorded. 12:03:16 LV gram done using VERA 12:03:18 Injector settings: Ml/sec: 5, Volume: 15, 12:03:25 EF : 55 % 12:03:29 Catheter removed. 12:03:37 A MULTIPACK JL 4.0 5Fr catheter was advanced over the wire and used for Left Coronary Angiography. 12:03:56 Versed 1 mg I.V. was administered by Victoria Hatfield RN; for sedation; 12:04:25 LCA angiography performed. 12:04:28 Injector settings: Ml/sec: 3, Volume: 6, 12:05:21 Catheter removed. 12:05:27 A MULTIPACK 3DRC 5Fr catheter was advanced over the wire and used for Multi-vessel Angiography. 12:05:39 GALVAN angiography performed. 12:05:49 Injector settings: Ml/sec: 3, Volume: 6, 12:06:26 A DIAGNOSTIC AR 2 MOD 5 Fr catheter ([id number]) was advanced over the wire and used for Multi-vessel Angiography. 12:06:35 SVG to Circ angiography performed. 12:06:59 SVG to RCA angiography performed. 12:07:08 Catheter removed. 12:07:27 EXOSEAL 5Fr (EX500) opened to sterile field. 12:07:39 Sheath removed intact; hemostasis achieved with Exoseal to the Right Femoral artery. 12:07:41 Procedure ended.(Physican Out) 12:08:05 Fluoroscopy time 01.80 minutes. 12:08:18 Flurop Dose total: 445 12:08:18 Fluoroscopy dose: 445 mGy 12:08:32 Contrast amount:Isovue 300 63ml. 12:08:33 Sharps counted by scrub and verified by R.N. 12:08:35 Insertion/operative site no bleeding no hematoma. 12:08:40 Post-op/insertion site Right Femoral artery dressed using a 4 x 4 and Tegaderm. 12:08:43 Post right femoral artery:stable 12:08:51 Post Procedure Pulses reassessed and unchanged 12:08:58 Post procedure rhythm: unchanged. 12:09:01 Estimated blood loss: 5 ml 12:09:02 Post procedure instruction explained to patient.Patient verbalizes understanding. 12:09:03 Patient needs reinforcement of post procedure teaching. 12:09:21 Procedure type changed to Cath procedure, Diagnostic procedure, LHC, LHC w/Coronaries, Miscellaneous Procedures, Moderate Sedation up to 30 minutes 12:09:38 Procedure and supply charges have been captured, reviewed, submitted and are correct. 12:09:42 Procedure Complication : No complications 12:09:45 See physician's report for complete and final results. 12:09:46 Vital chart was stopped 12:09:51 Report given to [facility]. 12:09:53 Patient transfered to [facility] with Stretcher. 12:09:56 Procedure ended. 12:09:56 Full Disclosure recording stopped 12:09:59 End room use (Document Last) Device Usage Item Name Manufacture Quantity Catalog Hospital Part Current Minimal L ot# / Number Charge Number Stock Stock Serial# Code ACIST Acist 1 27074 [id number] 421105 363175 20 Syringe Medical (86529) Systems Inc Bag Microtek 1 2001S 645086 65616 678396 5 Decanter Medical Inc. () Medline Cardinal 1 [id number] 225952 14576 811666 5 Cath Pack Health ([id number]) SHEATH 5FR Terumo 1 SVD428 709072 393805 490974 40 [place] (GMY980) DIAGNOSTIC [place] 1 598811 592023 356574 239264 30 WIRE .035 260cm J wire (733694) ACIST Hand Acist 1 17756 639006 476392 757740 5 Control Medical (95906) Systems Inc ACIST Acist 1 97948 884776 761695 890180 5 Manifold Medical (63018) Systems Inc DIAGNOSTIC Cardinal 1 IU2039 489541 60067 623164 30 Multipack Health 5Fr catheter set (GH8254) Tegaderm 4 3M 1 1626W 970146 702111 769099 5 x 4 (1626W) MULTIPACK Cardinal 1 707462 5 Pigtail 5 Health Fr catheter MULTIPACK Cardinal 1 059824 5 JL 4.0 5Fr Health catheter MULTIPACK Cardinal 1 803998 5 3DRC 5Fr Health catheter DIAGNOSTIC Cardinal 1 [id number] 452531 994671 449123 20 AR 2 MOD 5 Health Fr catheter (134389Q) EXOSEAL 5Fr Cardinal 1 EX500 458630 990171 219666 10 (EX500) Health Signature Audit [place] Stage Time Signature Unsigned Intra-Procedure 11/05/2017 Ivis Mata 12:13:15 PM RT(R) Signatures Monitor : Ivis Mata RT Signature : Date : Time : [place] [id number] [place] [address]
--- NOTE | ~2017-11-04 | OP ---
PATIENT NAME: BILL JIMENEZ MEDICAL RECORD: [id number] :44 LOCATION:D.M2 D.2121 ADMISSION DATE:11/04/17 SURGEON: JAM PADILLA MD DATE OF OPERATION: 11/05/2017 PROCEDURES: 1. Left heart catheterization. 2. Selective coronary angiography. 3. Left ventriculogram. 4. Vein graft angiography. 5. GALVAN angiography. INDICATION: Unstable angina and coronary artery disease. PROCEDURE IN DETAIL: After informed consent was obtained and after a detailed explanation of risks, benefits as well as alternative therapies, the patient elected to proceed with angiogram and heart catheterization. The right femoral area was prepped and draped in normal sterile fashion. The right femoral artery was cannulated via modified Seldinger technique with placement of 6-[place] sheath. All catheters exchanged through this sheath. FINDINGS: Left ventriculogram was performed in standard 30-degree VERA view, reveals preserved wall motion, ejection fraction 50% to 55%. SELECTIVE CORONARY ANGIOGRAPHY: 1. Left main has previously placed stent. This is patent. 2. Left anterior descending is totally occluded. 3. Left circumflex is small and diffusely diseased, but patent. 4. GALVAN to the LAD is patent. 5. Vein graft to the circumflex is patent; however, the distal vessels are small, diffusely diseased. 6. Right coronary artery is totally occluded. 7. Vein graft to the right coronary artery is patent. Distal vessel is small, diffusely diseased. OVERALL IMPRESSION: Wide patency of his graft, awful diffuse disease of the distal vessels is responsible for the ongoing anginal symptomatology. Center medical management on treatment of the hypertension and treatment of the angina. TRANSINT:[id number] Voice Confirmation ID: [id number] DOCUMENT ID: [id number] JAM PADILLA MD at 1546 CC: [id number] DICTATION DATE: 11/05/17 1215 BUS [employer]I INSTRUCTOR: 11/05/17 1259 ADM IN [place] [address] [place] [address]
--- NOTE | ~2017-11-04 | EC ---
PATIENT:BILL JIMENEZ DATE OF SERVICE: 11/04/17 SEX: M MEDICAL RECORD: [id number] DATE OF : 44 LOCATION:D. D.212 AGE OF PATIENT: 77 ADMISSION DATE: 11/05/17 REFERRING PHYSICIAN: INTERPRETING PHYSICIAN: LACIE URBAN MD ECHOCARDIOGRAM REPORT ECHO CHARGES 4 ECHO COMPLETE CLINICAL DIAGNOSIS: CHEST PAIN ECHOCARDIOGRAPHIC MEASUREMENTS (adult normal given) AC root (d.<3.7cm) 4.4 cm LV Septum d (<1.2 cm> 1.3 cm Valve Excursion 1.7 cm LV Septum (systole) 1.5 cm Left Atria (s.<4.0cm> 4.6 cm LVPW d(<1.2cm) 1.4 cm RV (d.<2.3cm) cm LVPW (sytole) 2.0 cm LV diastole(<5.6CM) 5.2 cm MV E-F(>70mm/sec) cm LV systole 3.2 cm LVOT Diameter 1.5 cm MV exc.(>10mm) 1.1 cm Est.ejection fraction (50-75%) % Pericardial Effusion N DOPPLER: LVIT cm/sec A 108 cm/sec E 123 cm/sec LA cm/sec RVSP 27 mmHg LVOT 96 cm/sec AOP1/2T m/s Asc. Ao 153 cm/sec RVOT 108 cm/sec RA cm/sec PA 159 cm/sec AV Gradient Peak 9.41 mmHg AV Mean 4.10 mmHg AV Area 1.2 cm MV Gradient Peak 8.73 mmHg MV Mean 3.31 mmHg MV Area cm COMMENTS: Milk Pickup Truck Driver: Zuleika SHUKLA Geography Instructor: Marek Urban TAPE# PACS DATE OF SERVICE: 11/04/2017 PROCEDURE: Transthoracic echocardiogram. FINDINGS: 1. Left ventricle has left ventricular hypertrophy and flow characteristics consistent with diastolic dysfunction. Ejection fraction is difficult to ascertain, but appears to be normal or may be in the slightly low. There is no obvious regional wall motion abnormalities. 2. Left atrium is moderately dilated. ECHOCARDIOGRAM REPORT [id number] BILL JIMENEZ 3. Aortic valve is sclerotic without stenosis or significant regurgitation. 4. The mitral valve has moderate mitral regurgitation. There is mitral annular calcification seen. 5. Tricuspid valve has mild tricuspid regurgitation. There is no demonstrated elevation of the right ventricular systolic pressures. 6. There is mild pulmonic insufficiency with suggestion of elevation in left ventricular end-diastolic pressures. 7. The right atrium is dilated. 8. Right ventricle is dilated. CONCLUSIONS: The patient's echocardiogram is more qualitative, but there is no obvious or significant functional impairment or valvular impairment demonstrated. There are dilatations in the chambers as mentioned and evidence of diastolic dysfunction. TRANSINT:[id number] Voice Confirmation ID: [id number] DOCUMENT ID: [id number] LACIE URBAN MD at 1118 CC: [id number] DICTATION DATE: 11/04/17 1542 ERGONOMICS TECHNICIAN: 11/04/17 1613 DIS IN 11/07/17 [facility] [address] [place] [address]
[2017-11-04 10:31] LABS: BASOPHILS 0.1 % (0-2); EOSINOPHILS 1.3 % (0-7); HEMATOCRIT 32.1 % (42.0-54.0); HEMOGLOBIN 10.6 g/dL (13.5-17.5); IMMATURE GRANULOCYTES 0.1 % (0-5); LYMPHOCYTES 15.6 % (15-50); MCH 30.4 pg (26.0-34.0); MONOCYTES 6.7 % (2-11); NEUTROPHILS 76.2 % (40-80); RBC 3.49 10x6/uL (4.20-6.10); RDW 13.4 % (11.5-14.5)
[2017-11-04 10:52] LABS: PLATELET COUNT 259 10x3/uL (130-400)
[2017-11-04 11:05] LABS: ALBUMIN 3.2 g/dL (3.4-5.0); ALKALINE PHOSPHATASE 61 U/L (46-116); ALT (SGPT) 26 U/L (10-68); BILIRUBIN - TOTAL 0.29 mg/dL (0.2-1.3); CALC OSMOLALITY 295 mosm/kg (275-300); CALCIUM 9.2 mg/dL (8.5-10.1); CARBON DIOXIDE 25.2 mmol/L (21.0-32.0); CHLORIDE - SERUM 103 mmol/L (98-107); POTASSIUM - SERUM 4.9 mmol/L (3.5-5.1); PROTEIN - SERUM 6.6 g/dL (6.4-8.2); SODIUM 136 mmol/L (136-145); UREA NITROGEN 40 mg/dL (7-18); eGFR NON AFRICAN AMERICAN 35 mL/min (90-120)
[2017-11-04 11:06] LABS: GLUCOSE 353 mg/dL (74-106)
[2017-11-04 11:29] LABS: CHOL - HDL RATIO 3.4 ratio (2.3-4.9); CHOLESTEROL, TOTAL 126 mg/dL (0-200); CKMB 0.4 U/L (0.0-3.6); CREATINE KINASE 66 UL (21-232); HDL CHOLESTEROL 37 mg/dL (32-96); LDL CHOLESTEROL 69 mg/dL (0-100); LDL-HDL RATIO 1.9 ratio (1.5-3.5); TRIGLYCERIDE 102 mg/dL (30-200)
[2017-11-04 11:32] LABS: TROPONIN-I 0.106 ng/mL (0.000-0.060)
[2017-11-04] MEDS ORDERED: NIFEDIPINE ER60 MG PO (12:46)
[2017-11-04] MEDS ORDERED: DURAGESIC1 PATCH .4 TRANSDERM (13:08)
[2017-11-04 16:11] VITALS: BP 186/76
[2017-11-04 16:44] LABS: CKMB 4.5 U/L (0.0-3.6); CREATINE KINASE 86 UL (21-232)
[2017-11-04 17:02] LABS: TROPONIN-I 1.719 ng/mL (0.000-0.060)
[2017-11-04 17:29] VITALS: BP 191/55
[2017-11-04 21:08] VITALS: BP 176/47
[2017-11-04 23:19] LABS: CKMB 3.8 U/L (0.0-3.6); CREATINE KINASE 87 UL (21-232)
[2017-11-04 23:20] LABS: TROPONIN-I 1.883 ng/mL (0.000-0.060)
[2017-11-05 00:48] VITALS: BP 161/51
[2017-11-05 04:21] VITALS: BP 177/47
[2017-11-05 05:34] LABS: BASOPHILS 0.4 % (0-2); EOSINOPHILS 2.1 % (0-7); HEMATOCRIT 32.1 % (42.0-54.0); HEMOGLOBIN 10.7 g/dL (13.5-17.5); IMMATURE GRANULOCYTES 0.1 % (0-5); LYMPHOCYTES 26.4 % (15-50); MCH 30.7 pg (26.0-34.0); MCHC 33.3 g/dL (31.0-37.0); MEAN PLATELET VOLUME 11.4 fL (7.4-10.4); MONOCYTES 7.1 % (2-11); NEUTROPHILS 63.9 % (40-80); PLATELET COUNT 307 10x3/uL (130-400); RBC 3.49 10x6/uL (4.20-6.10); RDW 13.6 % (11.5-14.5); WBC 7.7 10x3/uL (4.8-10.8)
[2017-11-05 06:04] LABS: ALBUMIN 3.2 g/dL (3.4-5.0); ANION GAP 12.2 mmol/L (8-16); BILIRUBIN - TOTAL 0.37 mg/dL (0.2-1.3); CALCIUM 9.3 mg/dL (8.5-10.1); CARBON DIOXIDE 26.4 mmol/L (21.0-32.0); CREATININE - SERUM 2.1 mg/dL (0.6-1.3); POTASSIUM - SERUM 4.6 mmol/L (3.5-5.1); PROTEIN - SERUM 6.7 g/dL (6.4-8.2)
[2017-11-05 07:57] VITALS: BP 148/63; BP 192/52
[2017-11-05 09:03] LABS: APTT 37.5 SECONDS (22.8-39.4); INR 1.09 (0.85-1.17); PROTIME 13.7 SECONDS (11.6-15.0)
[2017-11-05 16:00] VITALS: BP 134/33
[2017-11-05 21:32] VITALS: BP 141/47
[2017-11-06 03:23] VITALS: BP 162/48
[2017-11-06 06:14] LABS: BASOPHILS 0.3 % (0-2); HEMATOCRIT 28.8 % (42.0-54.0); HEMOGLOBIN 9.7 g/dL (13.5-17.5); IMMATURE GRANULOCYTES 0.1 % (0-5); MCH 30.9 pg (26.0-34.0); MCHC 33.7 g/dL (31.0-37.0); MCV 91.7 fL (80.0-100.0); MEAN PLATELET VOLUME 10.9 fL (7.4-10.4); MONOCYTES 10.9 % (2-11); NEUTROPHILS 55.7 % (40-80); RBC 3.14 10x6/uL (4.20-6.10); RDW 13.9 % (11.5-14.5); WBC 6.8 10x3/uL (4.8-10.8)
[2017-11-06 06:15] LABS: PLATELET COUNT 241 10x3/uL (130-400)
[2017-11-06 06:38] LABS: ANION GAP 11.7 mmol/L (8-16); CALCIUM 9.3 mg/dL (8.5-10.1); CARBON DIOXIDE 26.5 mmol/L (21.0-32.0); CREATININE - SERUM 2.2 mg/dL (0.6-1.3); POTASSIUM - SERUM 4.2 mmol/L (3.5-5.1)
[2017-11-06 07:48] VITALS: BP 172/50
[2017-11-06 11:32] VITALS: BP 182/43
[2017-11-06 12:49] VITALS: Ht 180.3 cm; Wt 88.5 kg
[2017-11-06 15:58] VITALS: BP 198/54
[2017-11-06 20:06] VITALS: BP 166/66
[2017-11-07] VITALS: BP 138/44
[2017-11-07 06:10] VITALS: BP 116/57
[2017-11-07] MEDS ORDERED: COZAAR50 MG PO (07:37)
[2017-11-07] MEDS ORDERED: CARDURA4 MG PO (07:37)
[2017-11-07] MEDS ORDERED: NORVASC10 MG PO (07:37)
[2017-11-07] MEDS ORDERED: METOPROLOL TART50 MG PO (07:38)
[2017-11-07] MEDS ORDERED: BUMEX 1 MG TAB1 MG PO (07:38)
[2017-11-07] MEDS ORDERED: PROTONIX40 MG PO (07:39)
[2017-11-07] MEDS ORDERED: NITRO-DUR0.6 MG TRANSDERM (07:41)
[2017-11-07] MEDS ORDERED: NITROQUICK0.4 MG SL (07:41)
[2017-11-07 07:49] VITALS: BP 178/87
== END 2017-11-07 10:37 | disposition home or self-care (01) | DRG 287 ==
LOC: D.ER 09:42 → D.M2 11:52 → OBSVTIME 11:52 → D.M2 11-05 13:29
PROVIDERS: Emergency Medicine; Family Medicine; Internal Medicine Interventional Cardiology
PROC: B2181ZZ Fluoroscopy of Left Internal Mammary Bypass Graft using Low Osmolar Contrast (ICD-10-PCS; 2017-11-05)
PROC: B2151ZZ Fluoroscopy of Left Heart using Low Osmolar Contrast (ICD-10-PCS; 2017-11-05)
PROC: 4A023N7 Measurement of Cardiac Sampling and Pressure, Left Heart, Percutaneous Approach (ICD-10-PCS; 2017-11-05)
PROC: B2111ZZ Fluoroscopy of Multiple Coronary Arteries using Low Osmolar Contrast (ICD-10-PCS; principal; 2017-11-05 09:00)
DX: I25.110 Atherosclerotic heart disease of native coronary artery with unstable angina pectoris (principal); N17.9 Acute kidney failure, unspecified; I13.0 Hypertensive heart and chronic kidney disease with heart failure and stage 1 through stage 4 chronic kidney disease, or unspecified chronic kidney disease; I50.32 Chronic diastolic (congestive) heart failure; I25.82 Chronic total occlusion of coronary artery; Z95.1 Presence of aortocoronary bypass graft; E10.22 Type 1 diabetes mellitus with diabetic chronic kidney disease; N18.9 Chronic kidney disease, unspecified; Z79.4 Long term (current) use of insulin; K21.9 Gastro-esophageal reflux disease without esophagitis; I69.919 Unspecified symptoms and signs involving cognitive functions following unspecified cerebrovascular disease; D64.9 Anemia, unspecified; E03.9 Hypothyroidism, unspecified; E78.5 Hyperlipidemia, unspecified